=== PATIENT | male | born 1935 | race Caucasian/White ===

== ENCOUNTER 2018-05-06 16:22 | Emergency (ER) | payer MEDICARE ==
[~2018-05-06] VITALS: Ht 165.1 cm; Wt 78.0 kg
[~2018-05-06 16:22] MED LIST: ATEN50TA PO; TAMS0.4C31 PO
[2018-05-06 19:45] VITALS: BP 144/55
== END 2018-05-06 23:49 | disposition left against medical advice (07) ==
LOC: ER 16:22
DX: R53.1 Weakness (principal); Z53.21 Procedure and treatment not carried out due to patient leaving prior to being seen by health care provider
CPT/HCPCS: 93005

== ENCOUNTER 2018-06-16 09:58 | Inpatient (IN) | payer MEDICARE, MEDICAID ==
[~2018-06-16] VITALS: Ht 162.6 cm; Wt 63.5 kg
[2018-06-16] MEDS ORDERED: SODIUM CHLORIDE 0.9% 1,000 ML IV ONE (10:36)
[2018-06-16 10:52] LABS: HEMATOCRIT. 27.9 % (42.0-52.0); HEMOGLOBIN. 9.1 g/dL (14.0-18.0); MEAN CORPUSCULAR HEMOGLOBIN 32.1 pg (28.0-32.0); MEAN CORPUSCULAR VOLUME 98.7 fL (80.0-94.0); MEAN PLATELET VOLUME 6.5 fl (7.4-10.4); PLATELET 248 x1000/uL (130-400); RED BLOOD CELL COUNT 2.83 mill/uL (4.7-6.1); RED CELL DISTRIBUTION WIDTH 20.5 % (11.6-14.6)
[2018-06-16 10:55] LABS: CHLORIDE 104 mEq/L (98-107)
[2018-06-16 10:56] LABS: INR 1.1; PROTHROMBIN TIME 10.6 sec (9.1-11.1)
[2018-06-16 11:41] LABS: PLATELET ESTIMATE NORMAL
[2018-06-16] MEDS ORDERED: PANTOPRAZOLE SODIUM 40 MG/VIAL IV ONE (12:00)
[2018-06-16] MEDS ORDERED: CLONIDINE 0.1MG TABLET PO PRN (12:00)
[2018-06-16] MEDS ORDERED: ONDANSETRON HCL 4MG/2ML INJ IV PRN (12:00)
[2018-06-16] MEDS ORDERED: DOCUSATE SODIUM 100MG CAPSULE PO PRN (12:00)
[2018-06-16] MEDS ORDERED: ACETAMINOPHEN 325MG TABLET PO PRN (12:00)
[2018-06-16] MEDS ORDERED: MAGNESIUM/ALUMINUM HYDROXIDE/SIMETHICONE 30ML UDC PO PRN (12:00)
[2018-06-16] MEDS ORDERED: GUAIFENESIN 200MG/10ML SUGAR FREE UDC PO PRN (12:00)
[2018-06-16] MEDS ORDERED: DIPHENHYDRAMINE 50MG/ML VIAL IV PRN (12:00)
[2018-06-16] MEDS ORDERED: PANTOPRAZOLE 80 MG in SODIUM CHLORIDE 0.9% 100 ML IV SCH ×2 (12:00→12:15)
[2018-06-16] MEDS ORDERED: HYDROCODONE/ACETAMINOPHEN 5/325MG TABLET PO PRN (12:00)
[2018-06-16] MEDS ORDERED: IPRATROPIUM/ALBUTEROL 0.5-3(2.5)MG/3ML NEB INH PRN (12:00)
[2018-06-16] MEDS ORDERED: LORAZEPAM 2MG/ML CPJ IV PRN (12:00)
[2018-06-16] MEDS ORDERED: SIMETHICONE 40 MG/0.6 ML 30ML ONE (13:45)
[2018-06-16] MEDS ORDERED: BACTERIOSTATIC SODIUM CHLORIDE 0.9% 30ML VIAL IJ ONE (13:45)
[2018-06-16 14:39] LABS: CHLORIDE 105 mEq/L (98-107)
[2018-06-16] MEDS ORDERED: HYDROMORPHONE HCL/PF 2MG/ML CPJ IV PRN (18:00)
[2018-06-16] MEDS ORDERED: NA PHOS,M-B/NA PHOS,DI-BA ENEMA 118ML PR PRN (21:00)
[2018-06-17] VITALS (8 sets, daily range): BP systolic 103–120; BP diastolic 53–70
[2018-06-17] MEDS ORDERED: FERR325T6 PO
[2018-06-17] MEDS ORDERED: MIRA25TA PO
[2018-06-17] MEDS ORDERED: MIRA50TA PO
[2018-06-17] MEDS ORDERED: PRED1TAB PO (00:17)
[2018-06-17] MEDS ORDERED: PRED10TA PO (00:17)
[2018-06-17] MEDS ORDERED: PENT400T11 PO (00:17)
[2018-06-17] MEDS ORDERED: METF-414 PO (00:17)
[2018-06-17] MEDS ORDERED: DOCU100T PO (00:17)
[2018-06-17] MEDS ORDERED: COLC0.6C3 PO (00:17)
[2018-06-17] MEDS ORDERED: CETI10CA2 PO (00:17)
[2018-06-17] MEDS ORDERED: SAW500CA12 PO (00:17)
[2018-06-17] MEDS ORDERED: OMEP20CA10 PO (00:17)
[2018-06-17] MEDS ORDERED: AM500 PO (00:17)
[2018-06-17] MEDS ORDERED: SUCR1TAB PO (00:17)
[2018-06-17] MEDS ORDERED: TAMS0.4C31 PO (00:17)
[2018-06-17] MEDS: SODIUM CHLORIDE 0.45% 1,000 ML IV SCH ×2 (03:02→13:10)
[2018-06-17] MEDS ORDERED: DEXTROSE 50% WATER 50ML SYRINGE IV PRN (05:15)
[2018-06-17 06:18] LABS: HEMATOCRIT. 24.1 % (42.0-52.0); HEMOGLOBIN. 7.8 g/dL (14.0-18.0); MEAN CORPUSCULAR HEMOGLOBIN 31.8 pg (28.0-32.0); MEAN CORPUSCULAR VOLUME 98.5 fL (80.0-94.0); MEAN PLATELET VOLUME 6.4 fl (7.4-10.4); PLATELET 219 x1000/uL (130-400); RED BLOOD CELL COUNT 2.45 mill/uL (4.7-6.1); RED CELL DISTRIBUTION WIDTH 21.3 % (11.6-14.6)
[2018-06-17 06:35] LABS: CHLORIDE 104 mEq/L (98-107)
[2018-06-17] MEDS: BLOOD SUGAR DIAGNOSTIC STRIP TEST SCH ×4 (06:47→21:52)
[2018-06-17 06:53] LABS: LDL CHOLESTEROL 50 mg/dL (5-100)
[2018-06-17 06:56] LABS: HDL CHOLESTEROL 39 mg/dL (40-59); T4 FREE 1.02 ng/dL (0.76-1.46)
[2018-06-17] MEDS: INSULIN LISPRO 100 UNITS/ML SUBCUT SCH ×4 (07:50→21:54)
[2018-06-17 10:25] LABS: PLATELET ESTIMATE NORMAL
[2018-06-17] MEDS ORDERED: MIDAZOLAM HCL 5 MG/5 ML VIAL ONE (16:17)
[2018-06-17] MEDS ORDERED: SIMETHICONE 40 MG/0.6 ML 30ML ONE (16:17)
[2018-06-17] MEDS ORDERED: FENTANYL CITRATE/PF 50MCG/ML 2ML VIAL ONE (16:18)
[2018-06-17] MEDS ORDERED: MIDAZOLAM HCL 5 MG/5 ML VIAL IV PRN (16:20)
[2018-06-17] MEDS ORDERED: SORBITOL 70% SOLN 30ML PO NR (22:00)
[2018-06-18] VITALS: BP 112/64
[2018-06-18 04:00] VITALS: BP 117/63
[2018-06-18] MEDS: SODIUM CHLORIDE 0.45% 1,000 ML IV SCH ×2 (05:15→15:04)
[2018-06-18 06:32] LABS: HEMATOCRIT. 26.2 % (42.0-52.0); HEMOGLOBIN. 8.4 g/dL (14.0-18.0); MEAN CORPUSCULAR HEMOGLOBIN 31.6 pg (28.0-32.0); MEAN CORPUSCULAR VOLUME 98.6 fL (80.0-94.0); MEAN PLATELET VOLUME 6.6 fl (7.4-10.4); PLATELET 234 x1000/uL (130-400); RED BLOOD CELL COUNT 2.65 mill/uL (4.7-6.1); RED CELL DISTRIBUTION WIDTH 20.9 % (11.6-14.6)
[2018-06-18] MEDS: BLOOD SUGAR DIAGNOSTIC STRIP TEST SCH ×4 (06:56→20:35)
[2018-06-18 07:33] LABS: CHLORIDE 107 mEq/L (98-107)
[2018-06-18] MEDS: INSULIN LISPRO 100 UNITS/ML SUBCUT SCH ×4 (07:50→20:35)
[2018-06-18 08:00] VITALS: BP 156/66
[2018-06-18] MEDS ORDERED: SIMETHICONE 40 MG/0.6 ML 30ML ONE ×2 (09:57→15:52)
[2018-06-18] MEDS ORDERED: BACTERIOSTATIC SODIUM CHLORIDE 0.9% 30ML VIAL IJ ONE (09:57)
[2018-06-18] MEDS ORDERED: SORBITOL 70% SOLN 30ML PO NR (10:00)
[2018-06-18 11:17] LABS: PLATELET ESTIMATE NORMAL
[2018-06-18 12:00] VITALS: BP 146/79
[2018-06-18] MEDS ORDERED: NA PHOS,M-B/NA PHOS,DI-BA ENEMA 118ML PR NR (12:00)
[2018-06-18] MEDS ORDERED: MIDAZOLAM HCL 5 MG/5 ML VIAL ONE (15:53)
[2018-06-18] MEDS ORDERED: FENTANYL CITRATE/PF 50MCG/ML 2ML VIAL ONE (15:53)
[2018-06-18] MEDS ORDERED: MIDAZOLAM HCL 5 MG/5 ML VIAL IV PRN (16:20)
[2018-06-18 20:00] VITALS: BP 121/60
[2018-06-19] VITALS: BP 112/62
[2018-06-19 04:00] VITALS: BP 130/60
[2018-06-19] MEDS: SODIUM CHLORIDE 0.45% 1,000 ML IV SCH (04:26)
[2018-06-19] MEDS: BLOOD SUGAR DIAGNOSTIC STRIP TEST SCH ×3 (06:21→17:12)
[2018-06-19 07:07] LABS: HEMATOCRIT. 24.3 % (42.0-52.0); HEMOGLOBIN. 7.8 g/dL (14.0-18.0); MEAN CORPUSCULAR HEMOGLOBIN 31.6 pg (28.0-32.0); MEAN CORPUSCULAR VOLUME 98.2 fL (80.0-94.0); MEAN PLATELET VOLUME 6.4 fl (7.4-10.4); PLATELET 220 x1000/uL (130-400); RED BLOOD CELL COUNT 2.47 mill/uL (4.7-6.1); RED CELL DISTRIBUTION WIDTH 20.8 % (11.6-14.6)
[2018-06-19] MEDS: INSULIN LISPRO 100 UNITS/ML SUBCUT SCH ×3 (07:50→17:12)
[2018-06-19 08:00] VITALS: BP 136/68
[2018-06-19 08:08] LABS: CHLORIDE 106 mEq/L (98-107)
[2018-06-19 12:00] VITALS: BP 124/58
[2018-06-19] MEDS ORDERED: POTASSIUM CHLORIDE 20MEQ TABLET SR PO SCH (12:00)
[2018-06-19 15:31] LABS: PLATELET ESTIMATE NORMAL
[2018-06-19 16:00] VITALS: BP 142/58
[2018-06-19 17:30] VITALS: BP 142/58
== END 2018-06-19 19:05 | disposition home health service (06) | DRG 378 ==
LOC: ER 09:58 → 6WST 11:56 → EDBEDREQTM 11:59 → EDBEDREQ 11:59 → ENRESERV 21:02
PROVIDERS: ADMIT Internal Medicine; ATTEND Internal Medicine
PROC: 0DJD8ZZ Inspection of Lower Intestinal Tract, Via Natural or Artificial Opening Endoscopic (ICD-10-PCS; principal; 2018-06-17)
PROC: 0DJ08ZZ Inspection of Upper Intestinal Tract, Via Natural or Artificial Opening Endoscopic (ICD-10-PCS; 2018-06-18)
DX: K57.91 Diverticulosis of intestine, part unspecified, without perforation or abscess with bleeding (principal); E44.0 Moderate protein-calorie malnutrition; D50.0 Iron deficiency anemia secondary to blood loss (chronic); K64.8 Other hemorrhoids; D64.9 Anemia, unspecified; E11.9 Type 2 diabetes mellitus without complications; E78.5 Hyperlipidemia, unspecified; E86.0 Dehydration; I10 Essential (primary) hypertension; K22.2 Esophageal obstruction; M06.9 Rheumatoid arthritis, unspecified; K29.70 Gastritis, unspecified, without bleeding; M19.90 Unspecified osteoarthritis, unspecified site; K44.9 Diaphragmatic hernia without obstruction or gangrene; E78.00 Pure hypercholesterolemia, unspecified; K26.9 Duodenal ulcer, unspecified as acute or chronic, without hemorrhage or perforation; N40.0 Benign prostatic hyperplasia without lower urinary tract symptoms; Z96.659 Presence of unspecified artificial knee joint; I25.2 Old myocardial infarction; K64.9 Unspecified hemorrhoids; Z68.24 Body mass index [BMI] 24.0-24.9, adult
CPT/HCPCS: 36415; 80048; 80061; 82962; 83605; 84439; 84443; 84484; 86850; 86900; 93005; 96361; 96365; 96375; 97162; 99285; C9113; J1815; J2250; J3010; J3490; J7030; J7050; J7620

== ENCOUNTER 2018-11-06 19:03 | Inpatient (IN) | payer MEDICARE, MEDICAID ==
[~2018-11-06] VITALS: Ht 162.6 cm; Wt 65.8 kg
[~2018-11-06 19:03] MED LIST changes: +CETI10CA2 PO; +COLC0.6C3 PO; +DOCU100T PO; +FERR325T6 PO; +METF-414 PO; +MIRA25TA PO; +MIRA50TA PO; +OMEP20CA5 PO; +PENT400T16 PO; +PRED10TA PO; +PRED1TAB PO; +SAW500CA12 PO; +SUCR1TAB PO
[2018-11-06] MEDS ORDERED: ONDANSETRON HCL 4MG/2ML INJ IV STA (21:04)
[2018-11-06] MEDS ORDERED: SODIUM CHLORIDE 0.9% 500 ML IV ONE (21:15)
[2018-11-06] MEDS ORDERED: PANTOPRAZOLE SODIUM 40 MG/VIAL IV ONE (21:15)
[2018-11-06] MEDS ORDERED: FAMOTIDINE 20MG/2ML VIAL IV ONE (21:15)
[2018-11-06 21:58] LABS: HEMATOCRIT. 24.3 % (42.0-52.0); HEMOGLOBIN. 7.5 g/dL (14.0-18.0); MEAN CORPUSCULAR HEMOGLOBIN 30.3 pg (28.0-32.0); MEAN CORPUSCULAR VOLUME 98.4 fL (80.0-94.0); MEAN PLATELET VOLUME 6.7 fl (7.4-10.4); PLATELET 226 x1000/uL (130-400); RED BLOOD CELL COUNT 2.47 mill/uL (4.7-6.1); RED CELL DISTRIBUTION WIDTH 19.9 % (11.6-14.6)
[2018-11-06 22:04] LABS: CHLORIDE 101 mEq/L (98-107)
[2018-11-06 22:08] LABS: INR 1.1; PARTIAL THROMBOPLASTIN TIME 34.3 sec (23.4-31.0); PROTHROMBIN TIME 11.1 sec (9.6-11.0)
[2018-11-06 22:19] LABS: PLATELET ESTIMATE NORMAL
[2018-11-07] VITALS (10 sets, daily range): BP systolic 110–139; BP diastolic 40–76
[2018-11-07] MEDS ORDERED: PRAV20TA57 MT (09:34)
[2018-11-07] MEDS ORDERED: GABA-290 MT (09:34)
[2018-11-07] MEDS ORDERED: ACETAMINOPHEN 325MG TABLET PO PRN (10:30)
[2018-11-07] MEDS ORDERED: ONDANSETRON HCL 4MG/2ML INJ IV PRN (10:30)
[2018-11-07] MEDS ORDERED: MORPHINE SULFATE 4 MG/ML CPJ (NOT FOR IM USE) IV PRN (10:45)
[2018-11-07] MEDS: PANTOPRAZOLE SODIUM 40 MG/VIAL IV SCH ×2 (13:28→22:57)
[2018-11-07] MEDS: PIPERACILLIN/TAZOBACTAM 3.375 G in DEXT 5% WATER 100 ML IV SCH ×2 (13:28→22:57)
[2018-11-07] MEDS: IRON SUCROSE COMPLEX 100 MG/5 ML ML IV SCH (14:19)
[2018-11-07 15:58] LABS: MEAN CORPUSCULAR HEMOGLOBIN 30.8 pg (28.0-32.0); MEAN CORPUSCULAR VOLUME 98.4 fL (80.0-94.0); MEAN PLATELET VOLUME 6.6 fl (7.4-10.4); PLATELET 188 x1000/uL (130-400); RED BLOOD CELL COUNT 2.13 mill/uL (4.7-6.1); RED CELL DISTRIBUTION WIDTH 19.8 % (11.6-14.6)
[2018-11-07 16:18] LABS: HEMATOCRIT. 20.9 % (42.0-52.0); HEMOGLOBIN. 6.6 g/dL (14.0-18.0)
[2018-11-07 16:39] LABS: CLARITY URINE CLEAR (CLEAR); COLOR URINE YELLOW (YELLOW); KETONES URINE NEGATIVE (NEGATIVE); LEUKOCYTE ESTERASE URINE NEGATIVE (NEGATIVE); NITRITE URINE NEGATIVE (NEGATIVE); OCCULT BLOOD URINE NEGATIVE (NEGATIVE); PH URINE 7.5 (4.5-8.0); PROTEIN URINE NEGATIVE (NEGATIVE); SPECIFIC GRAVITY URINE 1.011 (1.005-1.030); UROBILINOGEN URINE 0.2 E.U./dL (0.2-1.0)
[2018-11-07] MEDS ORDERED: MORPHINE SULFATE 2 MG/ML CPJ (NOT FOR IM USE) IV PRN (20:44)
[2018-11-07] MEDS ORDERED: DEXTROSE 50% WATER 50ML SYRINGE IV PRN (20:45)
[2018-11-07] MEDS: BLOOD SUGAR DIAGNOSTIC STRIP TEST SCH (21:00)
[2018-11-07] MEDS: INSULIN LISPRO 100 UNITS/ML SUBCUT SCH (21:00)
[2018-11-07 22:18] LABS: PLATELET ESTIMATE NORMAL
[2018-11-08] VITALS (35 sets, daily range): BP systolic 64–149; BP diastolic 20–61
[2018-11-08 00:25] LABS: HEMATOCRIT. 26.2 % (42.0-52.0); HEMOGLOBIN. 8.4 g/dL (14.0-18.0); MEAN CORPUSCULAR HEMOGLOBIN 30.7 pg (28.0-32.0); MEAN CORPUSCULAR VOLUME 95.5 fL (80.0-94.0); MEAN PLATELET VOLUME 6.9 fl (7.4-10.4); PLATELET 205 x1000/uL (130-400); RED BLOOD CELL COUNT 2.74 mill/uL (4.7-6.1); RED CELL DISTRIBUTION WIDTH 20.3 % (11.6-14.6)
[2018-11-08] MEDS: PIPERACILLIN/TAZOBACTAM 3.375 G in DEXT 5% WATER 100 ML IV SCH ×3 (05:56→18:21)
[2018-11-08] MEDS: BLOOD SUGAR DIAGNOSTIC STRIP TEST SCH ×4 (06:22→21:00)
[2018-11-08] MEDS: INSULIN LISPRO 100 UNITS/ML SUBCUT SCH ×4 (06:25→21:46)
[2018-11-08 07:16] LABS: PLATELET ESTIMATE NORMAL
[2018-11-08 07:44] LABS: HEMATOCRIT. 25.8 % (42.0-52.0); HEMOGLOBIN. 8.1 g/dL (14.0-18.0); MEAN CORPUSCULAR VOLUME 95.3 fL (80.0-94.0); MEAN PLATELET VOLUME 6.7 fl (7.4-10.4); PLATELET 197 x1000/uL (130-400); RED BLOOD CELL COUNT 2.71 mill/uL (4.7-6.1); RED CELL DISTRIBUTION WIDTH 20.3 % (11.6-14.6)
[2018-11-08 08:16] LABS: CHLORIDE 102 mEq/L (98-107)
[2018-11-08] MEDS: PANTOPRAZOLE SODIUM 40 MG/VIAL IV SCH ×2 (09:51→21:45)
[2018-11-08 13:58] LABS: PLATELET ESTIMATE NORMAL
[2018-11-08] MEDS: IRON SUCROSE COMPLEX 100 MG/5 ML ML IV SCH (14:55)
[2018-11-08 16:30] LABS: HEMOGLOBIN. 8.3 g/dL (14.0-18.0); MEAN CORPUSCULAR HEMOGLOBIN 30.5 pg (28.0-32.0); MEAN CORPUSCULAR VOLUME 95.5 fL (80.0-94.0); MEAN PLATELET VOLUME 6.9 fl (7.4-10.4); PLATELET 209 x1000/uL (130-400); RED BLOOD CELL COUNT 2.72 mill/uL (4.7-6.1); RED CELL DISTRIBUTION WIDTH 20.3 % (11.6-14.6)
[2018-11-08 20:08] LABS: PLATELET ESTIMATE NORMAL
[2018-11-09] VITALS (103 sets, daily range): BP systolic 83–153; BP diastolic 47–112
[2018-11-09] MEDS: PIPERACILLIN/TAZOBACTAM 3.375 G in DEXT 5% WATER 100 ML IV SCH ×5 (00:31→23:36)
[2018-11-09] MEDS: NOREPINEPHRINE 4 MG in DEXT 5% WATER 246 ML IV PRN (02:11)
[2018-11-09] MEDS: SODIUM CHLORIDE 0.9% 1,000 ML IV SCH ×2 (02:17→13:54)
[2018-11-09 03:22] LABS: MEAN CORPUSCULAR HEMOGLOBIN 30.6 pg (28.0-32.0); MEAN CORPUSCULAR VOLUME 92.1 fL (80.0-94.0); MEAN PLATELET VOLUME 6.5 fl (7.4-10.4); PLATELET 181 x1000/uL (130-400); RED BLOOD CELL COUNT 2.24 mill/uL (4.7-6.1); RED CELL DISTRIBUTION WIDTH 16.6 % (11.6-14.6)
[2018-11-09 03:27] LABS: HEMATOCRIT. 20.6 % (42.0-52.0); HEMOGLOBIN. 6.9 g/dL (14.0-18.0)
[2018-11-09] MEDS ORDERED: SORBITOL 70% SOLN 30ML PO NR (03:45)
[2018-11-09 03:52] LABS: CHLORIDE 109 mEq/L (98-107)
[2018-11-09] MEDS: BLOOD SUGAR DIAGNOSTIC STRIP TEST SCH ×4 (06:53→20:11)
[2018-11-09] MEDS: INSULIN LISPRO 100 UNITS/ML SUBCUT SCH ×4 (06:57→20:10)
[2018-11-09] MEDS ORDERED: SORBITOL 70% SOLN 30ML PO SCH (09:00)
[2018-11-09] MEDS: PANTOPRAZOLE SODIUM 40 MG/VIAL IV SCH ×2 (09:31→20:09)
[2018-11-09 10:05] LABS: INR 1.2; PARTIAL THROMBOPLASTIN TIME 33.6 sec (23.4-31.0)
[2018-11-09] MEDS ORDERED: MIDAZOLAM HCL 5 MG/5 ML VIAL ONE (11:11)
[2018-11-09] MEDS ORDERED: FENTANYL CITRATE/PF 50MCG/ML 2ML VIAL ONE (11:11)
[2018-11-09] MEDS ORDERED: FENTANYL CITRATE/PF 50MCG/ML 2ML VIAL IV NR (11:57)
[2018-11-09 12:11] LABS: HEMOGLOBIN 9.7 g/dL (14.0-18.0)
[2018-11-09] MEDS ORDERED: MIDAZOLAM HCL 5 MG/5 ML VIAL IV PRN (12:29)
[2018-11-09 13:31] LABS: PLATELET ESTIMATE NORMAL
[2018-11-09] MEDS: IRON SUCROSE COMPLEX 100 MG/5 ML ML IV SCH (13:55)
[2018-11-09 19:48] LABS: HEMATOCRIT 23.2 % (42.0-52.0); HEMOGLOBIN 7.7 g/dL (14.0-18.0)
[2018-11-10] VITALS (100 sets, daily range): BP systolic 72–140; BP diastolic 41–84
[2018-11-10] MEDS: SODIUM CHLORIDE 0.9% 1,000 ML IV SCH ×3 (01:01→17:28)
[2018-11-10] MEDS: PIPERACILLIN/TAZOBACTAM 3.375 G in DEXT 5% WATER 100 ML IV SCH ×4 (06:02→23:15)
[2018-11-10] MEDS: NOREPINEPHRINE 4 MG in DEXT 5% WATER 246 ML IV PRN (06:03)
[2018-11-10] MEDS: BLOOD SUGAR DIAGNOSTIC STRIP TEST SCH ×4 (07:06→20:57)
[2018-11-10] MEDS: INSULIN LISPRO 100 UNITS/ML SUBCUT SCH ×4 (08:00→20:57)
[2018-11-10] MEDS: PANTOPRAZOLE SODIUM 40 MG/VIAL IV SCH ×2 (08:33→20:57)
[2018-11-10] MEDS ORDERED: NOREPINEPHRINE 4MG/250ML PMX 250 ML IV ONE (11:00)
[2018-11-10] MEDS ORDERED: NOREPINEPHRINE 4 MG in DEXTROSE 5% WATER 250 ML IV PRN (11:30)
[2018-11-10 11:33] LABS: MEAN CORPUSCULAR HEMOGLOBIN 28.4 pg (28.0-32.0); MEAN CORPUSCULAR VOLUME 86.5 fL (80.0-94.0); MEAN PLATELET VOLUME 6.9 fl (7.4-10.4); PLATELET 194 x1000/uL (130-400); RED BLOOD CELL COUNT 2.04 mill/uL (4.7-6.1); RED CELL DISTRIBUTION WIDTH 19.3 % (11.6-14.6)
[2018-11-10 11:39] LABS: HEMATOCRIT. 17.7 % (42.0-52.0); HEMOGLOBIN. 5.8 g/dL (14.0-18.0)
[2018-11-10 12:14] LABS: PLATELET ESTIMATE NORMAL
[2018-11-10 19:46] LABS: HEMATOCRIT 21.1 % (42.0-52.0); MEAN CORPUSCULAR HEMOGLOBIN 27.5 pg (28.0-32.0); MEAN CORPUSCULAR VOLUME 82.9 fL (80.0-94.0); PLATELET 149 x1000/uL (130-400); RED BLOOD CELL COUNT 2.54 mill/uL (4.7-6.1)
[2018-11-11] VITALS (12 sets, daily range): BP systolic 96–136; BP diastolic 45–61
[2018-11-11 02:06] LABS: HEMATOCRIT 23.1 % (42.0-52.0); HEMOGLOBIN 7.9 g/dL (14.0-18.0)
[2018-11-11] MEDS: SODIUM CHLORIDE 0.9% 1,000 ML IV SCH ×2 (03:49→14:49)
[2018-11-11] MEDS: BLOOD SUGAR DIAGNOSTIC STRIP TEST SCH ×4 (06:03→20:59)
[2018-11-11] MEDS: INSULIN LISPRO 100 UNITS/ML SUBCUT SCH ×4 (06:03→20:59)
[2018-11-11] MEDS: PIPERACILLIN/TAZOBACTAM 3.375 G in DEXT 5% WATER 100 ML IV SCH ×3 (06:04→17:28)
[2018-11-11 06:47] LABS: HEMATOCRIT 22.6 % (42.0-52.0); HEMOGLOBIN 7.7 g/dL (14.0-18.0)
[2018-11-11 06:52] LABS: CHLORIDE 116 mEq/L (98-107)
[2018-11-11] MEDS: PANTOPRAZOLE SODIUM 40 MG/VIAL IV SCH ×2 (08:51→21:05)
[2018-11-11] MEDS ORDERED: KCL 20MEQ/100ML PREMIX 100 ML IV ONE (09:00)
[2018-11-11 12:09] LABS: HEMATOCRIT 21.4 % (42.0-52.0); HEMOGLOBIN 7.4 g/dL (14.0-18.0)
[2018-11-11 21:03] LABS: HEMATOCRIT 24.2 % (42.0-52.0); HEMOGLOBIN 8.4 g/dL (14.0-18.0); MEAN CORPUSCULAR HEMOGLOBIN 29.5 pg (28.0-32.0); MEAN CORPUSCULAR VOLUME 85.6 fL (80.0-94.0); PLATELET 158 x1000/uL (130-400); RED BLOOD CELL COUNT 2.83 mill/uL (4.7-6.1); RED CELL DISTRIBUTION WIDTH 17.3 % (11.6-14.6)
[2018-11-12] VITALS (12 sets, daily range): BP systolic 123–145; BP diastolic 51–87
[2018-11-12] MEDS: PIPERACILLIN/TAZOBACTAM 3.375 G in DEXT 5% WATER 100 ML IV SCH ×4 (00:21→17:54)
[2018-11-12 00:45] LABS: HEMATOCRIT 23.9 % (42.0-52.0); HEMOGLOBIN 8.2 g/dL (14.0-18.0)
[2018-11-12] MEDS: SODIUM CHLORIDE 0.9% 1,000 ML IV SCH ×2 (05:46)
[2018-11-12 07:22] LABS: HEMATOCRIT. 24.3 % (42.0-52.0); HEMOGLOBIN. 8.3 g/dL (14.0-18.0); MEAN CORPUSCULAR HEMOGLOBIN 29.4 pg (28.0-32.0); MEAN PLATELET VOLUME 6.8 fl (7.4-10.4); PLATELET 155 x1000/uL (130-400); RED BLOOD CELL COUNT 2.82 mill/uL (4.7-6.1); RED CELL DISTRIBUTION WIDTH 17.3 % (11.6-14.6)
[2018-11-12 07:28] LABS: CHLORIDE 116 mEq/L (98-107)
[2018-11-12] MEDS: BLOOD SUGAR DIAGNOSTIC STRIP TEST SCH ×4 (07:30→20:54)
[2018-11-12] MEDS ORDERED: POTASSIUM CHLORIDE 20MEQ/PACKET PO SCH (08:00)
[2018-11-12] MEDS: INSULIN LISPRO 100 UNITS/ML SUBCUT SCH ×4 (08:00→20:54)
[2018-11-12] MEDS: PANTOPRAZOLE SODIUM 40 MG/VIAL IV SCH ×2 (09:21→20:54)
[2018-11-12 12:42] LABS: HEMATOCRIT 28.8 % (42.0-52.0); HEMOGLOBIN 9.9 g/dL (14.0-18.0)
[2018-11-12] MEDS ORDERED: POTASSIUM CHLORIDE INJ 40 MEQ in DEXT 5% WATER 230 ML IV NR (13:00)
[2018-11-12 13:17] LABS: PLATELET ESTIMATE NORMAL
[2018-11-12] MEDS ORDERED: POTASSIUM CHLORIDE 20MEQ/PACKET PO NR (17:30)
[2018-11-12 19:49] LABS: HEMATOCRIT 30.6 % (42.0-52.0); HEMOGLOBIN 10.6 g/dL (14.0-18.0)
== END 2018-11-12 21:59 | disposition home or self-care (01) | DRG 377 ==
LOC: ER 19:03 → 6WST 22:49 → EDBEDREQTM 22:51 → EDBEDREQ 22:51 → ENRESERV 11-07 06:55 → 5EST 11-08 18:29 → MICUSO 11-12 14:15
PROVIDERS: ADMIT Internal Medicine; ATTEND Internal Medicine
PROC: 30233N1 Transfusion of Nonautologous Red Blood Cells into Peripheral Vein, Percutaneous Approach (ICD-10-PCS; principal; 2018-11-07)
PROC: 0DJD8ZZ Inspection of Lower Intestinal Tract, Via Natural or Artificial Opening Endoscopic (ICD-10-PCS; 2018-11-09)
PROC: 0DB68ZX Excision of Stomach, Via Natural or Artificial Opening Endoscopic, Diagnostic (ICD-10-PCS; 2018-11-09)
DX: K57.51 Diverticulosis of both small and large intestine without perforation or abscess with bleeding (principal); E43 Unspecified severe protein-calorie malnutrition; R57.1 Hypovolemic shock; D62 Acute posthemorrhagic anemia; K29.81 Duodenitis with bleeding; K29.71 Gastritis, unspecified, with bleeding; E11.9 Type 2 diabetes mellitus without complications; E78.5 Hyperlipidemia, unspecified; K44.9 Diaphragmatic hernia without obstruction or gangrene; N40.0 Benign prostatic hyperplasia without lower urinary tract symptoms; M19.90 Unspecified osteoarthritis, unspecified site; M19.011 Primary osteoarthritis, right shoulder; M19.012 Primary osteoarthritis, left shoulder; K40.90 Unilateral inguinal hernia, without obstruction or gangrene, not specified as recurrent; D72.825 Bandemia; K64.8 Other hemorrhoids; R00.0 Tachycardia, unspecified; I10 Essential (primary) hypertension; M06.9 Rheumatoid arthritis, unspecified; Z96.659 Presence of unspecified artificial knee joint; Z87.11 Personal history of peptic ulcer disease; Z68.24 Body mass index [BMI] 24.0-24.9, adult; Z79.84 Long term (current) use of oral hypoglycemic drugs; Z79.899 Other long term (current) drug therapy
CPT/HCPCS: 36415; 71045; 74176; 78278; 80048; 81003; 82270; 82728; 82962; 83605; 83735; 83880; 84132; 84484; 85014; 85018; 85027; 86850; 86900; 86920; 87015; 87045; 87427; 87449; 87493; 88305; 88313; 89055; 93005; 93970; 96374; 97162; 99291; A9560; C9113; J1815; J2250; J2405; J2543; J3010; J3480; J3490; J7030; J7040; J7060; P9016; P9021

== ENCOUNTER 2018-12-02 05:47 | Day surgery (SDC) | payer MEDICARE, MEDICAID ==
[~2018-12-02] VITALS: Ht 162.6 cm; Wt 67.1 kg
[~2018-12-02 05:47] MED LIST changes: -CETI10CA2 PO; -COLC0.6C3 PO; +GABA-290 MT; -MIRA50TA PO; +PRAV20TA57 MT; -PRED10TA PO; -SUCR1TAB PO
[2018-12-02] MEDS ORDERED: SODIUM CHLORIDE 0.9% 1,000 ML IV SCH (06:30)
[2018-12-02] MEDS ORDERED: BUPIVACAINE HCL 0.5% (5MG/ML) 50ML ONE (06:42)
[2018-12-02] MEDS ORDERED: SKIN ADHESIVE 0.7 GM EA TOP ONE (06:42)
[2018-12-02] MEDS ORDERED: ROCURONIUM BROMIDE 10MG/ML VIAL 5ML IV ONE (07:02)
[2018-12-02] MEDS ORDERED: BUPIVACAINE HCL 0.5% 175 ML in ON-Q PM013 DRUG DELIV DEVICE 1 EA IR SCH (08:15)
[2018-12-02] MEDS ORDERED: HYDROMORPHONE HCL/PF 2MG/ML CPJ IV PRN (09:00)
[2018-12-02] MEDS ORDERED: COLC0.6C3 PO (09:50)
[2018-12-02] MEDS ORDERED: PANT20TA3 PO (09:50)
== END 2018-12-02 12:15 | disposition home or self-care (01) ==
LOC: OR 05:47
PROVIDERS: ATTEND Surgery
DX: K40.91 Unilateral inguinal hernia, without obstruction or gangrene, recurrent (principal); E11.9 Type 2 diabetes mellitus without complications; I10 Essential (primary) hypertension; N40.0 Benign prostatic hyperplasia without lower urinary tract symptoms; M19.90 Unspecified osteoarthritis, unspecified site; E78.00 Pure hypercholesterolemia, unspecified; D64.9 Anemia, unspecified; Z98.890 Other specified postprocedural states; Z79.899 Other long term (current) drug therapy
CPT/HCPCS: 49520; 82962; 88302; C1781; J0690; J1720; J2250; J2370; J2405; J2704; J2710; J3010; J3490

== ENCOUNTER 2019-05-11 13:06 | Inpatient (IN) | payer MEDICARE, MEDICAID ==
[~2019-05-11] VITALS: Ht 162.6 cm; Wt 67.1 kg
[~2019-05-11 13:06] MED LIST changes: +COLC0.6C3 PO; -OMEP20CA5 PO; +PANT20TA3 PO
[2019-05-11] MEDS ORDERED: SODIUM CHLORIDE 0.9% 1,000 ML IV ONE (16:17)
[2019-05-11 16:53] LABS: HEMATOCRIT. 22.5 % (42.0-52.0); MEAN CORPUSCULAR HEMOGLOBIN 30.8 pg (28.0-32.0); MEAN CORPUSCULAR VOLUME 99.9 fL (80.0-94.0); MEAN PLATELET VOLUME 6.8 fl (7.4-10.4); PLATELET 254 x1000/uL (130-400); RED BLOOD CELL COUNT 2.26 mill/uL (4.7-6.1); RED CELL DISTRIBUTION WIDTH 19.3 % (11.6-14.6)
[2019-05-11 16:55] LABS: CHLORIDE 103 mEq/L (98-107)
[2019-05-11 16:57] LABS: HEMOGLOBIN. 6.9 g/dL (14.0-18.0)
[2019-05-11 17:00] LABS: INR 1.1; PROTHROMBIN TIME 11.4 sec (9.6-11.0)
[2019-05-11 17:11] LABS: PLATELET ESTIMATE NORMAL
[2019-05-11] MEDS ORDERED: CLONIDINE 0.1MG TABLET PO PRN (18:15)
[2019-05-11] MEDS ORDERED: DEXTROSE 50% WATER 50ML SYRINGE IV PRN (18:15)
[2019-05-11] MEDS ORDERED: MAGNESIUM/ALUMINUM HYDROXIDE/SIMETHICONE 30ML UDC PO PRN (18:15)
[2019-05-11] MEDS ORDERED: LORAZEPAM 0.5MG TABLET PO PRN (18:15)
[2019-05-11] MEDS ORDERED: IPRATROPIUM/ALBUTEROL 0.5-3(2.5)MG/3ML NEB NEB PRN (18:15)
[2019-05-11] MEDS ORDERED: NITROGLYCERIN 0.4MG TABLET SL SL PRN (18:15)
[2019-05-11] MEDS ORDERED: ONDANSETRON HCL 4MG/2ML INJ IV PRN (18:15)
[2019-05-11] MEDS ORDERED: DOCUSATE SODIUM 100MG CAPSULE PO PRN (18:15)
[2019-05-11] MEDS ORDERED: ACETAMINOPHEN 325MG TABLET PO PRN (18:15)
[2019-05-11] MEDS ORDERED: GUAIFENESIN 200MG/10ML SUGAR FREE UDC PO PRN (18:15)
[2019-05-11] MEDS ORDERED: INSULIN LISPRO 100 UNITS/ML SUBCUT SCH (18:20)
[2019-05-11 19:32] LABS: VITAMIN B12 SERUM 578 pg/mL (211-911)
[2019-05-11 19:37] LABS: FOLIC ACID (FOLATE) SERUM > 20.00 ng/mL (>5.38)
[2019-05-11] MEDS ORDERED: TRAMADOL 50MG TABLET PO PRN (19:55)
[2019-05-11] MEDS ORDERED: ZOLPIDEM TARTRATE 5MG TABLET PO PRN (21:00)
[2019-05-12] VITALS (11 sets, daily range): BP systolic 102–129; BP diastolic 38–63
[2019-05-12] MEDS: INSULIN LISPRO 100 UNITS/ML SUBCUT SCH ×4 (06:20→21:00)
[2019-05-12] MEDS: BLOOD SUGAR DIAGNOSTIC STRIP TEST SCH ×4 (06:20→21:00)
[2019-05-12] MEDS: TAMSULOSIN HCL 0.4MG SR CAPSULE PO SCH (09:00)
[2019-05-12] MEDS: PANTOPRAZOLE SODIUM 40 MG/VIAL IV SCH (09:00)
[2019-05-12 21:27] LABS: HEMOGLOBIN 8.5 g/dL (14.0-18.0)
[2019-05-13] VITALS: BP 126/44
[2019-05-13 04:00] VITALS: BP 137/51
[2019-05-13 06:29] LABS: HEMOGLOBIN. 8.1 g/dL (14.0-18.0); MEAN CORPUSCULAR HEMOGLOBIN 31.3 pg (28.0-32.0); MEAN CORPUSCULAR VOLUME 96.2 fL (80.0-94.0); MEAN PLATELET VOLUME 6.9 fl (7.4-10.4); PLATELET 211 x1000/uL (130-400); RED CELL DISTRIBUTION WIDTH 19.1 % (11.6-14.6)
[2019-05-13 06:49] LABS: CHLORIDE 106 mEq/L (98-107)
[2019-05-13 07:00] LABS: PHOSPHORUS 3.4 mg/dL (2.5-4.9)
[2019-05-13] MEDS: INSULIN LISPRO 100 UNITS/ML SUBCUT SCH ×4 (07:31→20:58)
[2019-05-13] MEDS: BLOOD SUGAR DIAGNOSTIC STRIP TEST SCH ×4 (07:31→20:58)
[2019-05-13 08:00] VITALS: BP 140/56
[2019-05-13] MEDS: PANTOPRAZOLE SODIUM 40 MG/VIAL IV SCH (08:39)
[2019-05-13] MEDS: TAMSULOSIN HCL 0.4MG SR CAPSULE PO SCH (08:40)
[2019-05-13 12:00] VITALS: BP 138/58
[2019-05-13 12:46] LABS: PLATELET ESTIMATE NORMAL
[2019-05-13] MEDS ORDERED: IRON SUCROSE COMPLEX 100 MG/5 ML ML IV SCH (13:00)
[2019-05-13 15:36] LABS: CLARITY URINE CLEAR (CLEAR); COLOR URINE YELLOW (YELLOW); KETONES URINE NEGATIVE (NEGATIVE); LEUKOCYTE ESTERASE URINE NEGATIVE (NEGATIVE); NITRITE URINE NEGATIVE (NEGATIVE); OCCULT BLOOD URINE NEGATIVE (NEGATIVE); PH URINE 7.5 (4.5-8.0); PROTEIN URINE NEGATIVE (NEGATIVE); SPECIFIC GRAVITY URINE 1.013 (1.005-1.030)
[2019-05-13 16:00] VITALS: BP 134/54
[2019-05-13 20:00] VITALS: BP 144/60
[2019-05-14] VITALS: BP 127/65
[2019-05-14 04:00] VITALS: BP 125/60
[2019-05-14 07:04] LABS: HEMATOCRIT. 25.6 % (42.0-52.0); HEMOGLOBIN. 8.3 g/dL (14.0-18.0); MEAN CORPUSCULAR HEMOGLOBIN 31.4 pg (28.0-32.0); MEAN CORPUSCULAR VOLUME 96.5 fL (80.0-94.0); MEAN PLATELET VOLUME 6.8 fl (7.4-10.4); PLATELET 229 x1000/uL (130-400); RED BLOOD CELL COUNT 2.65 mill/uL (4.7-6.1); RED CELL DISTRIBUTION WIDTH 18.9 % (11.6-14.6)
[2019-05-14] MEDS: BLOOD SUGAR DIAGNOSTIC STRIP TEST SCH (07:20)
[2019-05-14 07:39] LABS: CHLORIDE 103 mEq/L (98-107)
[2019-05-14] MEDS: INSULIN LISPRO 100 UNITS/ML SUBCUT SCH (07:50)
[2019-05-14 08:00] VITALS: BP 123/58
[2019-05-14] MEDS: TAMSULOSIN HCL 0.4MG SR CAPSULE PO SCH (08:54)
[2019-05-14] MEDS: PANTOPRAZOLE SODIUM 40 MG/VIAL IV SCH (08:54)
[2019-05-14 11:16] LABS: PLATELET ESTIMATE NORMAL
[2019-05-14 11:43] VITALS: BP 123/58
[2019-05-15 08:10] LABS: MICROALBUMIN RANDOM URINE <3.0 ug/mL (Not Estab.)
== END 2019-05-14 12:41 | disposition home health service (06) | DRG 378 ==
LOC: ER 13:06 → EDBEDREQTM 17:44 → EDBEDREQ 17:44 → CANRESERV 22:47 → ENRESERV 22:47 → 6EST 23:55
PROVIDERS: ADMIT Internal Medicine; ATTEND Internal Medicine
PROC: 30233N1 Transfusion of Nonautologous Red Blood Cells into Peripheral Vein, Percutaneous Approach (ICD-10-PCS; principal; 2019-05-11)
DX: K62.5 Hemorrhage of anus and rectum (principal); D62 Acute posthemorrhagic anemia; E44.0 Moderate protein-calorie malnutrition; N17.9 Acute kidney failure, unspecified; I12.9 Hypertensive chronic kidney disease with stage 1 through stage 4 chronic kidney disease, or unspecified chronic kidney disease; N40.0 Benign prostatic hyperplasia without lower urinary tract symptoms; J44.9 Chronic obstructive pulmonary disease, unspecified; Z96.659 Presence of unspecified artificial knee joint; Z79.899 Other long term (current) drug therapy; Z79.84 Long term (current) use of oral hypoglycemic drugs; Z68.25 Body mass index [BMI] 25.0-25.9, adult; Z87.11 Personal history of peptic ulcer disease; M06.9 Rheumatoid arthritis, unspecified; E78.5 Hyperlipidemia, unspecified; N18.3 Chronic kidney disease, stage 3 (moderate); Z79.4 Long term (current) use of insulin; E11.9 Type 2 diabetes mellitus without complications
CPT/HCPCS: 36415; 71045; 76770; 80048; 80053; 80061; 81003; 82043; 82570; 82607; 82728; 82746; 82962; 83036; 83540; 83550; 83735; 83935; 84100; 84300; 85014; 85018; 85025; 86850; 86900; 86920; 93005; 93306; 93970; 97162; 99285; C9113; J7030; P9016

== ENCOUNTER 2019-09-30 05:11 | Emergency (ER) | payer MEDICARE, MEDICAID ==
[~2019-09-30] VITALS: Ht 157.5 cm; Wt 60.0 kg
[2019-09-30 05:55] VITALS: BP 156/79
[2019-09-30 07:43] LABS: HEMATOCRIT. 24.1 % (42.0-52.0); HEMOGLOBIN. 7.5 g/dL (14.0-18.0); MEAN CORPUSCULAR HEMOGLOBIN 26.8 pg (28.0-32.0); MEAN CORPUSCULAR VOLUME 86.2 fL (80.0-94.0); MEAN PLATELET VOLUME 6.8 fl (7.4-10.4); PLATELET 406 x1000/uL (130-400); RED BLOOD CELL COUNT 2.79 mill/uL (4.7-6.1)
[2019-09-30 07:49] LABS: CHLORIDE 104 mEq/L (98-107)
[2019-09-30 07:54] LABS: INR 1.1; PROTHROMBIN TIME 11.5 sec (9.6-11.0)
[2019-09-30] MEDS ORDERED: TRANEXAMIC ACID 1,000 MG/10 ML TP ONE (08:00)
[2019-09-30 08:33] LABS: PLATELET ESTIMATE NORMAL
[2019-09-30] MEDS ORDERED: LIDOCAINE 1%/EPI 1:100,000 10 ML VIAL IJ ONE (10:15)
[2019-09-30] MEDS ORDERED: LIDOCAINE HCL/EPINEPHRINE 1%-EPI 1:100,000 20 ML VIAL INFIL NR (10:45)
[2019-09-30] MEDS ORDERED: THROMBIN (BOVINE) 5000 UNITS/VIAL TOP ONE (10:45)
== END 2019-09-30 12:22 | disposition home or self-care (01) ==
LOC: ER 05:11
DX: K06.8 Other specified disorders of gingiva and edentulous alveolar ridge (principal); R03.0 Elevated blood-pressure reading, without diagnosis of hypertension
CPT/HCPCS: 36415; 80053; 85025; 99284; J3490

== ENCOUNTER 2019-12-18 14:59 | Emergency (ER) | payer MEDICARE, MEDICAID ==
[~2019-12-18] VITALS: Ht 165.1 cm; Wt 67.0 kg
[2019-12-18] MEDS ORDERED: ACETAMINOPHEN 325MG TABLET PO ONE (15:30)
[2019-12-18] MEDS ORDERED: TETANUS, DIPHTHERIA, PERTUSSIS VAC/PF 0.5ML (>7YR OLD) IM ONE (15:30)
[2019-12-18 19:17] VITALS: BP 128/59
[2019-12-18] MEDS ORDERED: SILVER NITRATE APPLICATOR STICK TOP ONE (19:30)
[2019-12-18] MEDS ORDERED: LIDOCAINE 1%/EPI 1:200,000 10 ML VIAL IJ NR (20:00)
[2019-12-18] MEDS ORDERED: LIDOCAINE HCL/EPINEPHRINE 1%-EPI 1:100,000 30 ML VIAL INFIL ONE (20:00)
[2019-12-18] MEDS ORDERED: OXYMETAZOLINE HCL NASAL SPRAY 15ML BOTHNSTRLS SCH (21:00)
== END 2019-12-18 21:05 | disposition home or self-care (01) ==
LOC: ER 15:29
DX: S00.03XA Contusion of scalp, initial encounter (principal); R04.0 Epistaxis; Z79.899 Other long term (current) drug therapy; W18.30XA Fall on same level, unspecified, initial encounter; Y93.89 Activity, other specified; Y92.89 Other specified places as the place of occurrence of the external cause; Y99.8 Other external cause status
CPT/HCPCS: 90471; 90715; 93005; 99285